=== PATIENT | female | born 1950 | race Caucasian/White ===

== ENCOUNTER 2022-01-15 08:45 | Outpatient (CLI) | payer MEDICARE | END 2022-01-15 08:46 | disposition home or self-care (01) | LOC: BICMAMMO 08:45 | PROVIDERS: ATTEND Family Medicine | DX: Z12.31 Encounter for screening mammogram for malignant neoplasm of breast (principal) | CPT/HCPCS: 77063; 77067 ==

== ENCOUNTER 2023-03-04 10:39 | Outpatient (CLI) | payer MEDICARE | END 2023-03-04 10:40 | disposition home or self-care (01) | LOC: ULT 10:39 | PROVIDERS: ATTEND Family Medicine | DX: M79.672 Pain in left foot (principal); I99.9 Unspecified disorder of circulatory system | CPT/HCPCS: 93923 ==